=== PATIENT | female | born 1950 | race Caucasian/White ===

== ENCOUNTER 2018-03-19 18:19 | Inpatient (IN) | payer MEDICARE, OTHER ==
[2018-03-19] MEDS: NITROGLYCERIN 2% 1 GM OINT PKT TD (19:04)
[2018-03-19] MEDS: FUROSEMIDE 40 MG INJ IV (19:04)
[2018-03-19 19:15] LABS: ADD MAN DIFF? NO
[2018-03-19 19:16] LABS: ABNORMAL IP MESSAGE 1; BASOPHILS % 0.4 % (0.0-2.0); EOSINOPHILS # 0.1 10^3/ul (0.0-0.5); EOSINOPHILS % 1.3 % (0.0-7.0); HEMATOCRIT 36.8 % (37.0-47.0); HEMOGLOBIN 11.4 g/dl (12.0-16.0); LYMPHOCYTES # 1.3 10^3/ul (0.8-2.9); LYMPHOCYTES % 14.8 % (15.0-51.0); MEAN CORPUSCULAR HEMOGLOBIN 20.4 pg (29.0-33.0); MEAN CORPUSCULAR VOLUME 65.8 fl (82.0-101.0); MONOCYTE # 0.5 10^3/ul (0.3-0.9); MONOCYTES % 5.7 % (0.0-11.0); NEUTROPHILS % 77.5 % (39.0-77.0); PLATELET COUNT 245 10^3/UL (140-415); RED BLOOD COUNT 5.59 10^6/ul (4.20-5.40); RED CELL DISTRIBUTION WIDTH 17.2 % (11.5-14.5)
[2018-03-19] MEDS: DILTIAZEM 25 MG INJ IV (19:27)
[2018-03-19] MEDS: DILTIAZEM-D5W 125MG/125ML DRIP 125 ML IV (19:28)
[2018-03-19 19:37] LABS: ALANINE AMINOTRANSFERASE 27 IU/L (13-69); ALBUMIN 3.5 g/dl (3.3-4.9); ALBUMIN/GLOBULIN RATIO 1.02; ALKALINE PHOSPHATASE 243 IU/L (42-121); ANION GAP 16 (8-16); ASPARTATE AMINO TRANSFERASE 28 IU/L (15-46); BILIRUBIN,INDIRECT 0.4 mg/dl (0-1.1); BILIRUBIN,TOTAL 0.4 mg/dl (0.2-1.3); BLOOD UREA NITROGEN 12 mg/dl (7-20); CALCIUM 8.7 mg/dl (8.4-10.2); CARBON DIOXIDE 27 mmol/L (21-31); CHLORIDE 95 mmol/L (97-110); CREATININE 0.63 mg/dl (0.44-1.00); GLUCOSE 339 mg/dl (70-220); POTASSIUM 4.3 mmol/L (3.5-5.1); SODIUM 134 mmol/L (135-144); TOTAL PROTEIN 6.9 g/dl (6.1-8.1)
[2018-03-19 19:43] LABS: INR 1.09; PROTIME 14.3 Sec (11.9-14.9); PT RATIO 1.1
[2018-03-19 19:44] LABS: PARTIAL THROMBOPLASTIN TIME 31.5 Sec (25.0-35.0)
[2018-03-19 19:48] LABS: B-TYPE NATRIURETIC PEPTIDE 1660 PG/ML (0-125); POSITIVE DIFF @See below
[2018-03-19 19:49] LABS: TROPONIN-I < 0.012 ng/ml (0.00-0.12)
[2018-03-19] MEDS ORDERED: ACETAMINOPHEN 325 MG TAB PO (20:30)
[2018-03-19] MEDS ORDERED: ONDANSETRON 4 MG INJ IV ×2 (20:30→21:00)
[2018-03-19] MEDS ORDERED: NITROGLYCERIN (SL) 0.4 MG TAB SL (21:00)
[2018-03-19] MEDS ORDERED: NACL 0.9% 3 ML SYG IV (21:00)
[2018-03-19 21:11] LABS: MAGNESIUM 1.6 mg/dl (1.7-2.5)
[2018-03-19 21:15] LABS: HEMOGLOBIN A1C 11.2 % (0-5.9)
[2018-03-19 22:50] LABS: FREE T4 (FREE THYROXINE) 1.29 ng/dl (0.78-2.44)
[2018-03-19] MEDS ORDERED: DEXTROSE 50% 50 ML SYRINGE IV ×2 (23:00)
[2018-03-19] MEDS ORDERED: GLUCAGON 1 MG INJ IM (23:00)
[2018-03-19] MEDS ORDERED: GLUCOSE GEL 15 GRAM TUBE BUCCAL (23:00)
[2018-03-19] MEDS ORDERED: GLUCOSE GEL 15 GRAM TUBE PO ×2 (23:00)
[2018-03-19] MEDS: PANTOPRAZOLE (EC) 40 MG TAB PO (23:55)
[2018-03-19] MEDS: DOCUSATE SODIUM 100 MG CAP PO (23:58)
[2018-03-19] MEDS: SUCRALFATE 1 GM TAB PO (23:58)
[2018-03-19] MEDS: LISINOPRIL 20 MG TAB PO (23:59)
[2018-03-20] MEDS: MAGNESIUM SULFATE 2 GM/50 ML 50 ML IVPB
[2018-03-20] MEDS: DIGOXIN 0.125 MG TAB PO ×2 (00:12→13:17)
[2018-03-20 01:09] LABS: CREATINE KINASE 81 IU/L (23-200)
[2018-03-20 01:22] LABS: CK INDEX 1.9; CK-MB 1.55 ng/ml (0.0-2.4)
[2018-03-20 01:23] LABS: TROPONIN-I < 0.012 ng/ml (0.00-0.12)
[2018-03-20] MEDS: ACCU-CHEK XX (02:00)
[2018-03-20] MEDS: INSULIN GLARGINE [LANtus] 3 ML PEN SC ×2 (02:45→20:25)
[2018-03-20] MEDS: INSULIN ASPART [NOVOLOG] 3 ML PEN SC ×5 (02:48→20:26)
[2018-03-20] MEDS: PANTOPRAZOLE (EC) 40 MG TAB PO ×2 (07:00→07:13)
[2018-03-20] MEDS: SUCRALFATE 1 GM TAB PO ×4 (07:13→20:33)
[2018-03-20] MEDS ORDERED: SUCRALFATE 1 GM TAB PO (07:25)
[2018-03-20 08:59] LABS: ADD MAN DIFF? NO
[2018-03-20 09:05] LABS: WHITE BLOOD COUNT 8.2 10^3/ul (4.8-10.8)
[2018-03-20 09:05] LABS: ABNORMAL IP MESSAGE 1; BASOPHIL # 0.1 10^3/ul (0.0-0.1); BASOPHILS % 0.6 % (0.0-2.0); EOSINOPHILS # 0.2 10^3/ul (0.0-0.5); EOSINOPHILS % 2.2 % (0.0-7.0); HEMATOCRIT 35.7 % (37.0-47.0); HEMOGLOBIN 10.8 g/dl (12.0-16.0); LYMPHOCYTES # 1.5 10^3/ul (0.8-2.9); MEAN CORPUSCULAR HEMOGLOBIN 20.1 pg (29.0-33.0); MEAN CORPUSCULAR HGB CONC 30.3 g/dl (32.0-37.0); MEAN CORPUSCULAR VOLUME 66.4 fl (82.0-101.0); MONOCYTE # 0.5 10^3/ul (0.3-0.9); MONOCYTES % 6.6 % (0.0-11.0); NEUTROPHILS % 72.4 % (39.0-77.0); PLATELET COUNT 252 10^3/UL (140-415); RED BLOOD COUNT 5.38 10^6/ul (4.20-5.40)
[2018-03-20 09:07] LABS: POSITIVE DIFF @See below
[2018-03-20 09:26] LABS: IRON 40 ug/dl (35-150)
[2018-03-20 09:30] LABS: ALANINE AMINOTRANSFERASE 20 IU/L (13-69); ALBUMIN 3.3 g/dl (3.3-4.9); ALKALINE PHOSPHATASE 160 IU/L (42-121); ANION GAP 15 (8-16); ASPARTATE AMINO TRANSFERASE 23 IU/L (15-46); BILIRUBIN,INDIRECT 0.6 mg/dl (0-1.1); BILIRUBIN,TOTAL 0.6 mg/dl (0.2-1.3); BLOOD UREA NITROGEN 13 mg/dl (7-20); CALCIUM 8.7 mg/dl (8.4-10.2); CARBON DIOXIDE 30 mmol/L (21-31); CHLORIDE 97 mmol/L (97-110); CREATININE 0.64 mg/dl (0.44-1.00); GLUCOSE 178 mg/dl (70-220); POTASSIUM 3.6 mmol/L (3.5-5.1); SODIUM 138 mmol/L (135-144); TOTAL PROTEIN 6.6 g/dl (6.1-8.1)
[2018-03-20] MEDS: LISINOPRIL 20 MG TAB PO (09:31)
[2018-03-20] MEDS: MULTIVITAMINS THERAPEUTIC TAB PO (09:31)
[2018-03-20] MEDS: CILOSTAZOL 100 MG TAB PO (09:31)
[2018-03-20 09:32] LABS: CREATINE KINASE 79 IU/L (23-200)
[2018-03-20 09:35] LABS: % IRON SATURATION 10 % SAT (22-52); TOTAL IRON BINDING CAPACITY 388 ug/dl (241-421)
[2018-03-20 09:38] LABS: CK-MB 1.55 ng/ml (0.0-2.4)
[2018-03-20 09:54] LABS: TROPONIN-I < 0.012 ng/ml (0.00-0.12)
[2018-03-20 09:55] LABS: FERRITIN 14.1 ng/ml (11.1-264.0)
[2018-03-20] MEDS: BISACODYL (EC) 5 MG TAB PO (12:43)
[2018-03-20] MEDS: ACETAMINOPHEN 325 MG TAB PO ×2 (15:34→23:37)
[2018-03-20 19:58] LABS: OCCULT BLOOD STOOL NEGATIVE (NEGATIVE)
[2018-03-20] MEDS: [UNRECOGNIZED DRUG - REMARK] XX (20:30)
[2018-03-20] MEDS: FUROSEMIDE 20 MG INJ IV (20:33)
[2018-03-20] MEDS: GABAPENTIN 300 MG CAP PO (20:34)
[2018-03-20] MEDS: ATORVASTATIN 10 MG TAB PO (20:34)
[2018-03-20] MEDS: ENOXAPARIN 60 MG/0.6 ML SYG SC (20:34)
[2018-03-21] MEDS: ACCU-CHEK XX (02:00)
[2018-03-21] MEDS: [UNRECOGNIZED DRUG - REMARK] XX (04:30)
[2018-03-21] MEDS: PANTOPRAZOLE (EC) 40 MG TAB PO (05:25)
[2018-03-21] MEDS: INSULIN ASPART [NOVOLOG] 3 ML PEN SC ×5 (07:55→20:41)
[2018-03-21] MEDS: SUCRALFATE 1 GM TAB PO ×4 (07:55→20:40)
[2018-03-21 08:03] LABS: ADD MAN DIFF? NO
[2018-03-21 08:05] LABS: ABNORMAL IP MESSAGE 1; BASOPHILS % 0.4 % (0.0-2.0); EOSINOPHILS # 0.2 10^3/ul (0.0-0.5); EOSINOPHILS % 2.4 % (0.0-7.0); HEMATOCRIT 31.8 % (37.0-47.0); HEMOGLOBIN 9.7 g/dl (12.0-16.0); LYMPHOCYTES # 1.1 10^3/ul (0.8-2.9); LYMPHOCYTES % 13.2 % (15.0-51.0); MEAN CORPUSCULAR HGB CONC 30.5 g/dl (32.0-37.0); MEAN CORPUSCULAR VOLUME 65.7 fl (82.0-101.0); MONOCYTE # 0.5 10^3/ul (0.3-0.9); MONOCYTES % 5.9 % (0.0-11.0); NEUTROPHIL # 6.2 10^3/ul (1.6-7.5); NEUTROPHILS % 77.7 % (39.0-77.0); PLATELET COUNT 225 10^3/UL (140-415); RED BLOOD COUNT 4.84 10^6/ul (4.20-5.40); RED CELL DISTRIBUTION WIDTH 17.3 % (11.5-14.5)
[2018-03-21 08:12] LABS: POSITIVE DIFF @See below
[2018-03-21 08:25] LABS: ANION GAP 10 (8-16); BLOOD UREA NITROGEN 20 mg/dl (7-20); CALCIUM 8.3 mg/dl (8.4-10.2); CARBON DIOXIDE 30 mmol/L (21-31); CHLORIDE 99 mmol/L (97-110); CREATININE 0.63 mg/dl (0.44-1.00); GLUCOSE 145 mg/dl (70-220); SODIUM 135 mmol/L (135-144)
[2018-03-21] MEDS: LISINOPRIL 20 MG TAB PO (08:54)
[2018-03-21] MEDS: FERROUS SULFATE (EC) 325 MG TAB PO (08:55)
[2018-03-21] MEDS: MULTIVITAMINS THERAPEUTIC TAB PO (08:55)
[2018-03-21] MEDS: FUROSEMIDE 20 MG INJ IV (08:55)
[2018-03-21] MEDS ORDERED: ENOXAPARIN 30 MG/0.3 ML SYG SC (11:00)
[2018-03-21] MEDS: APIXABAN 5 MG TABLET PO ×2 (11:40→20:40)
[2018-03-21] MEDS: DIGOXIN 0.125 MG TAB PO (14:26)
[2018-03-21] MEDS: GABAPENTIN 300 MG CAP PO (20:40)
[2018-03-21] MEDS: ATORVASTATIN 10 MG TAB PO (20:40)
[2018-03-21] MEDS: INSULIN GLARGINE [LANtus] 3 ML PEN SC (20:42)
[2018-03-22] MEDS: ACCU-CHEK XX (01:49)
[2018-03-22] MEDS: PANTOPRAZOLE (EC) 40 MG TAB PO (05:10)
[2018-03-22] MEDS: ACETAMINOPHEN 325 MG TAB PO (05:10)
[2018-03-22] MEDS: SUCRALFATE 1 GM TAB PO ×4 (05:10→20:50)
[2018-03-22] MEDS: APIXABAN 5 MG TABLET PO ×2 (08:21→20:49)
[2018-03-22] MEDS: FERROUS SULFATE (EC) 325 MG TAB PO (08:22)
[2018-03-22] MEDS: LISINOPRIL 20 MG TAB PO (08:22)
[2018-03-22] MEDS: MULTIVITAMINS THERAPEUTIC TAB PO (08:22)
[2018-03-22] MEDS: FUROSEMIDE 20 MG INJ IV ×2 (08:23→17:10)
[2018-03-22] MEDS: INSULIN ASPART [NOVOLOG] 3 ML PEN SC ×7 (08:31→20:44)
[2018-03-22 09:21] LABS: ADD MAN DIFF? NO
[2018-03-22 09:35] LABS: WHITE BLOOD COUNT 6.3 10^3/ul (4.8-10.8)
[2018-03-22 09:35] LABS: ABNORMAL IP MESSAGE 1; BASOPHILS % 0.3 % (0.0-2.0); EOSINOPHILS # 0.2 10^3/ul (0.0-0.5); EOSINOPHILS % 2.4 % (0.0-7.0); HEMATOCRIT 32.3 % (37.0-47.0); HEMOGLOBIN 9.9 g/dl (12.0-16.0); LYMPHOCYTES # 1.3 10^3/ul (0.8-2.9); LYMPHOCYTES % 19.7 % (15.0-51.0); MEAN CORPUSCULAR HEMOGLOBIN 20.4 pg (29.0-33.0); MEAN CORPUSCULAR HGB CONC 30.7 g/dl (32.0-37.0); MEAN CORPUSCULAR VOLUME 66.5 fl (82.0-101.0); MONOCYTE # 0.6 10^3/ul (0.3-0.9); MONOCYTES % 8.7 % (0.0-11.0); NEUTROPHIL # 4.4 10^3/ul (1.6-7.5); NEUTROPHILS % 68.6 % (39.0-77.0); PLATELET COUNT 225 10^3/UL (140-415); RED BLOOD COUNT 4.86 10^6/ul (4.20-5.40); RED CELL DISTRIBUTION WIDTH 16.8 % (11.5-14.5)
[2018-03-22 09:54] LABS: ANION GAP 13 (8-16); BLOOD UREA NITROGEN 22 mg/dl (7-20); CALCIUM 8.7 mg/dl (8.4-10.2); CARBON DIOXIDE 33 mmol/L (21-31); CHLORIDE 97 mmol/L (97-110); CREATININE 0.67 mg/dl (0.44-1.00); GLUCOSE 153 mg/dl (70-220); POTASSIUM 3.7 mmol/L (3.5-5.1); SODIUM 139 mmol/L (135-144)
[2018-03-22] MEDS: DIGOXIN 0.125 MG TAB PO (13:02)
[2018-03-22] MEDS: INSULIN GLARGINE [LANtus] 3 ML PEN SC (20:44)
[2018-03-22] MEDS: GABAPENTIN 300 MG CAP PO (20:50)
[2018-03-22] MEDS: ATORVASTATIN 10 MG TAB PO (20:50)
[2018-03-23] MEDS: ACCU-CHEK XX (02:42)
[2018-03-23] MEDS: INSULIN ASPART [NOVOLOG] 3 ML PEN SC ×8 (02:48→20:38)
[2018-03-23] MEDS: FUROSEMIDE 20 MG INJ IV ×2 (05:15→17:29)
[2018-03-23] MEDS: PANTOPRAZOLE (EC) 40 MG TAB PO (05:15)
[2018-03-23 08:21] LABS: ADD MAN DIFF? NO
[2018-03-23 08:30] LABS: ABNORMAL IP MESSAGE 1; BASOPHILS % 0.4 % (0.0-2.0); EOSINOPHILS # 0.2 10^3/ul (0.0-0.5); EOSINOPHILS % 2.2 % (0.0-7.0); HEMATOCRIT 33.1 % (37.0-47.0); HEMOGLOBIN 10.2 g/dl (12.0-16.0); LYMPHOCYTES # 1.3 10^3/ul (0.8-2.9); MEAN CORPUSCULAR HEMOGLOBIN 20.3 pg (29.0-33.0); MEAN CORPUSCULAR HGB CONC 30.8 g/dl (32.0-37.0); MEAN CORPUSCULAR VOLUME 65.8 fl (82.0-101.0); MONOCYTE # 0.6 10^3/ul (0.3-0.9); MONOCYTES % 8.4 % (0.0-11.0); NEUTROPHIL # 5.3 10^3/ul (1.6-7.5); NEUTROPHILS % 71.7 % (39.0-77.0); PLATELET COUNT 226 10^3/UL (140-415); RED BLOOD COUNT 5.03 10^6/ul (4.20-5.40); RED CELL DISTRIBUTION WIDTH 17.2 % (11.5-14.5)
[2018-03-23 08:30] LABS: WHITE BLOOD COUNT 7.4 10^3/ul (4.8-10.8)
[2018-03-23 08:35] LABS: POSITIVE DIFF @See below
[2018-03-23] MEDS: LISINOPRIL 20 MG TAB PO (08:50)
[2018-03-23] MEDS: FERROUS SULFATE (EC) 325 MG TAB PO (08:51)
[2018-03-23] MEDS: SUCRALFATE 1 GM TAB PO ×4 (08:51→20:34)
[2018-03-23] MEDS: APIXABAN 5 MG TABLET PO ×2 (08:51→20:35)
[2018-03-23] MEDS: MULTIVITAMINS THERAPEUTIC TAB PO (08:51)
[2018-03-23 08:54] LABS: ANION GAP 13 (8-16); BLOOD UREA NITROGEN 22 mg/dl (7-20); CARBON DIOXIDE 38 mmol/L (21-31); CHLORIDE 95 mmol/L (97-110); CREATININE 0.64 mg/dl (0.44-1.00); GLUCOSE 175 mg/dl (70-220); POTASSIUM 3.5 mmol/L (3.5-5.1); SODIUM 142 mmol/L (135-144)
[2018-03-23 12:33] LABS: HAAIG REFLEX REFLEX FILED
[2018-03-23 12:52] LABS: ALANINE AMINOTRANSFERASE 18 IU/L (13-69); ALBUMIN 3.3 g/dl (3.3-4.9); ALKALINE PHOSPHATASE 158 IU/L (42-121); ASPARTATE AMINO TRANSFERASE 22 IU/L (15-46); BILIRUBIN,INDIRECT 0.6 mg/dl (0-1.1); BILIRUBIN,TOTAL 0.6 mg/dl (0.2-1.3); TOTAL PROTEIN 6.7 g/dl (6.1-8.1)
[2018-03-23] MEDS: DIGOXIN 0.125 MG TAB PO (12:59)
[2018-03-23 13:23] LABS: HEPATITIS B SURFACE ANTIGEN NEGATIVE (NEGATIVE)
[2018-03-23 13:42] LABS: HEPATITIS B CORE ANTIBODY NEGATIVE (NEGATIVE); HEPATITIS C VIRAL ANTIBODY NEGATIVE (NEGATIVE)
[2018-03-23] MEDS: ATORVASTATIN 10 MG TAB PO (20:34)
[2018-03-23] MEDS: GABAPENTIN 300 MG CAP PO (20:35)
[2018-03-23] MEDS: INSULIN GLARGINE [LANtus] 3 ML PEN SC (20:37)
[2018-03-24] MEDS: ACCU-CHEK XX (02:00)
[2018-03-24] MEDS: FUROSEMIDE 20 MG INJ IV (05:25)
[2018-03-24] MEDS: PANTOPRAZOLE (EC) 40 MG TAB PO (05:25)
[2018-03-24] MEDS: LISINOPRIL 20 MG TAB PO (08:28)
[2018-03-24] MEDS: MULTIVITAMINS THERAPEUTIC TAB PO (08:29)
[2018-03-24] MEDS: APIXABAN 5 MG TABLET PO ×2 (08:29→20:41)
[2018-03-24] MEDS: FERROUS SULFATE (EC) 325 MG TAB PO (08:29)
[2018-03-24] MEDS: SUCRALFATE 1 GM TAB PO ×4 (08:29→20:41)
[2018-03-24] MEDS: INSULIN ASPART [NOVOLOG] 3 ML PEN SC ×7 (08:32→20:51)
[2018-03-24] MEDS: ACETAMINOPHEN 325 MG TAB PO ×2 (08:40→17:50)
[2018-03-24 08:57] LABS: ADD MAN DIFF? NO
[2018-03-24 09:04] LABS: WHITE BLOOD COUNT 7.2 10^3/ul (4.8-10.8)
[2018-03-24 09:04] LABS: ABNORMAL IP MESSAGE 1; BASOPHILS % 0.4 % (0.0-2.0); EOSINOPHILS # 0.2 10^3/ul (0.0-0.5); EOSINOPHILS % 2.9 % (0.0-7.0); HEMATOCRIT 32.9 % (37.0-47.0); LYMPHOCYTES # 1.5 10^3/ul (0.8-2.9); LYMPHOCYTES % 21.4 % (15.0-51.0); MEAN CORPUSCULAR HEMOGLOBIN 20.2 pg (29.0-33.0); MEAN CORPUSCULAR HGB CONC 30.4 g/dl (32.0-37.0); MEAN CORPUSCULAR VOLUME 66.3 fl (82.0-101.0); MEAN PLATELET VOLUME 11.5 fl (7.4-10.4); MONOCYTE # 0.6 10^3/ul (0.3-0.9); NEUTROPHIL # 4.7 10^3/ul (1.6-7.5); NEUTROPHILS % 66.2 % (39.0-77.0); PLATELET COUNT 225 10^3/UL (140-415); RED BLOOD COUNT 4.96 10^6/ul (4.20-5.40); RED CELL DISTRIBUTION WIDTH 16.8 % (11.5-14.5)
[2018-03-24 09:29] LABS: ANION GAP 14 (8-16); BLOOD UREA NITROGEN 26 mg/dl (7-20); CALCIUM 8.8 mg/dl (8.4-10.2); CARBON DIOXIDE 34 mmol/L (21-31); CHLORIDE 97 mmol/L (97-110); GLUCOSE 156 mg/dl (70-220); POTASSIUM 3.7 mmol/L (3.5-5.1); SODIUM 141 mmol/L (135-144)
[2018-03-24] MEDS: DIGOXIN 0.125 MG TAB PO (12:45)
[2018-03-24] MEDS: FUROSEMIDE 40 MG INJ IV (17:38)
[2018-03-24] MEDS: ATORVASTATIN 10 MG TAB PO (20:42)
[2018-03-24] MEDS: GABAPENTIN 300 MG CAP PO (20:43)
[2018-03-24] MEDS: INSULIN GLARGINE [LANtus] 3 ML PEN SC (20:50)
[2018-03-25] MEDS: ACCU-CHEK XX (02:00)
[2018-03-25] MEDS: FUROSEMIDE 40 MG INJ IV ×2 (06:09→17:26)
[2018-03-25] MEDS: PANTOPRAZOLE (EC) 40 MG TAB PO (06:09)
[2018-03-25] MEDS: SUCRALFATE 1 GM TAB PO ×4 (08:12→20:55)
[2018-03-25] MEDS: APIXABAN 5 MG TABLET PO ×2 (08:12→20:55)
[2018-03-25] MEDS: FERROUS SULFATE (EC) 325 MG TAB PO (08:12)
[2018-03-25] MEDS: MULTIVITAMINS THERAPEUTIC TAB PO (08:12)
[2018-03-25] MEDS: LISINOPRIL 20 MG TAB PO (08:13)
[2018-03-25] MEDS: INSULIN ASPART [NOVOLOG] 3 ML PEN SC ×7 (08:33→21:02)
[2018-03-25 08:52] LABS: ADD MAN DIFF? NO
[2018-03-25 08:56] LABS: ABNORMAL IP MESSAGE 1; BASOPHILS % 0.5 % (0.0-2.0); EOSINOPHILS # 0.3 10^3/ul (0.0-0.5); EOSINOPHILS % 4.5 % (0.0-7.0); HEMATOCRIT 35.3 % (37.0-47.0); HEMOGLOBIN 10.6 g/dl (12.0-16.0); LYMPHOCYTES # 1.3 10^3/ul (0.8-2.9); MEAN CORPUSCULAR HEMOGLOBIN 20.2 pg (29.0-33.0); MEAN CORPUSCULAR VOLUME 67.2 fl (82.0-101.0); MEAN PLATELET VOLUME 11.2 fl (7.4-10.4); MONOCYTE # 0.5 10^3/ul (0.3-0.9); MONOCYTES % 8.9 % (0.0-11.0); NEUTROPHIL # 3.9 10^3/ul (1.6-7.5); NEUTROPHILS % 64.9 % (39.0-77.0); PLATELET COUNT 222 10^3/UL (140-415); RED BLOOD COUNT 5.25 10^6/ul (4.20-5.40)
[2018-03-25 08:58] LABS: POSITIVE DIFF @See below
[2018-03-25 09:24] LABS: INR 1.13; PARTIAL THROMBOPLASTIN TIME 37.2 Sec (25.0-35.0); PROTIME 14.7 Sec (11.9-14.9); PT RATIO 1.1
[2018-03-25 09:27] LABS: BLOOD UREA NITROGEN 25 mg/dl (7-20); CALCIUM 9.2 mg/dl (8.4-10.2); CHLORIDE 95 mmol/L (97-110); CREATININE 0.67 mg/dl (0.44-1.00); GLUCOSE 275 mg/dl (70-220); SODIUM 142 mmol/L (135-144)
[2018-03-25 09:33] LABS: ANION GAP 12 (8-16)
[2018-03-25 09:37] LABS: CARBON DIOXIDE 39 mmol/L (21-31)
[2018-03-25] MEDS: ACETAMINOPHEN 325 MG TAB PO ×2 (10:58→17:37)
[2018-03-25] MEDS: DIGOXIN 0.125 MG TAB PO (12:48)
[2018-03-25] MEDS: ATORVASTATIN 10 MG TAB PO (20:55)
[2018-03-25] MEDS: GABAPENTIN 300 MG CAP PO (20:55)
[2018-03-25] MEDS: INSULIN GLARGINE [LANtus] 3 ML PEN SC (21:02)
[2018-03-26] MEDS: ACETAMINOPHEN 325 MG TAB PO ×2 (01:41→23:42)
[2018-03-26] MEDS: ACCU-CHEK XX (02:00)
[2018-03-26] MEDS: PANTOPRAZOLE (EC) 40 MG TAB PO (05:51)
[2018-03-26] MEDS: FUROSEMIDE 40 MG INJ IV ×2 (05:51→17:07)
[2018-03-26] MEDS: SUCRALFATE 1 GM TAB PO ×4 (07:38→20:14)
[2018-03-26] MEDS: INSULIN ASPART [NOVOLOG] 3 ML PEN SC ×7 (08:22→21:04)
[2018-03-26] MEDS: FERROUS SULFATE (EC) 325 MG TAB PO (08:23)
[2018-03-26] MEDS: MULTIVITAMINS THERAPEUTIC TAB PO (08:23)
[2018-03-26] MEDS: APIXABAN 5 MG TABLET PO ×2 (08:23→20:16)
[2018-03-26] MEDS: LISINOPRIL 20 MG TAB PO (08:24)
[2018-03-26] MEDS: DIGOXIN 0.125 MG TAB PO (12:16)
[2018-03-26] MEDS: ATORVASTATIN 10 MG TAB PO (20:16)
[2018-03-26] MEDS: GABAPENTIN 300 MG CAP PO (20:16)
[2018-03-26] MEDS: INSULIN GLARGINE [LANtus] 3 ML PEN SC (21:03)
[2018-03-27] MEDS: ACCU-CHEK XX (02:00)
[2018-03-27] MEDS: PANTOPRAZOLE (EC) 40 MG TAB PO (05:40)
[2018-03-27] MEDS: FUROSEMIDE 40 MG INJ IV (05:41)
[2018-03-27] MEDS: INSULIN ASPART [NOVOLOG] 3 ML PEN SC ×4 (07:55→13:35)
[2018-03-27] MEDS: MULTIVITAMINS THERAPEUTIC TAB PO (08:45)
[2018-03-27] MEDS: FERROUS SULFATE (EC) 325 MG TAB PO (08:45)
[2018-03-27] MEDS: SUCRALFATE 1 GM TAB PO ×2 (08:45→11:20)
[2018-03-27] MEDS: APIXABAN 5 MG TABLET PO (08:45)
[2018-03-27] MEDS: LISINOPRIL 20 MG TAB PO (08:46)
[2018-03-27] MEDS: DIGOXIN 0.125 MG TAB PO (15:13)
[2018-03-27] MEDS: ACETAMINOPHEN 325 MG TAB PO (16:23)
[2018-03-27] MEDS ORDERED: FUROSEMIDE 40 MG TAB PO (18:00)
== END 2018-03-27 18:30 | disposition home or self-care (01) | DRG 293 ==
LOC: TEL 03-24 10:55 → E/R 18:19 → TEL 20:09
DX: I11.0 Hypertensive heart disease with heart failure (principal); I50.23 Acute on chronic systolic (congestive) heart failure; I27.20 Pulmonary hypertension, unspecified; I48.91 Unspecified atrial fibrillation; E11.65 Type 2 diabetes mellitus with hyperglycemia; Z87.11 Personal history of peptic ulcer disease; D64.9 Anemia, unspecified; E78.5 Hyperlipidemia, unspecified; K21.9 Gastro-esophageal reflux disease without esophagitis; E02 Subclinical iodine-deficiency hypothyroidism; E11.51 Type 2 diabetes mellitus with diabetic peripheral angiopathy without gangrene; E78.00 Pure hypercholesterolemia, unspecified
CPT/HCPCS: 36415; 71045; 76705; 80048; 80053; 80076; 82270; 82550; 82553; 82728; 82962; 83036; 83540; 83735; 83880; 84439; 84443; 84481; 84484; 85025; 85610; 85730; 86704; 86709; 86803; 87340; 93005; 93306; 93970; 96365; 96375; 99285-25

== ENCOUNTER 2018-04-03 21:44 | Inpatient (IN) | payer MEDICARE ==
[2018-04-04] MEDS: ONDANSETRON 4 MG INJ IV ×2 (00:56→20:16)
[2018-04-04] MEDS: DILTIAZEM 50 MG INJ IV ×2 (00:56→07:56)
[2018-04-04] MEDS: morphine 2 MG INJ IV ×2 (00:56→20:16)
[2018-04-04 01:02] LABS: ADD MAN DIFF? NO
[2018-04-04] MEDS: SOD CHLORIDE 0.9% 500 ML IV (01:04)
[2018-04-04 01:11] LABS: ABNORMAL IP MESSAGE 1; BASOPHILS % 0.4 % (0.0-2.0); EOSINOPHILS % 0.4 % (0.0-7.0); HEMATOCRIT 36.4 % (37.0-47.0); HEMOGLOBIN 11.2 g/dl (12.0-16.0); LYMPHOCYTES # 1.2 10^3/ul (0.8-2.9); LYMPHOCYTES % 10.9 % (15.0-51.0); MEAN CORPUSCULAR HEMOGLOBIN 20.1 pg (29.0-33.0); MEAN CORPUSCULAR HGB CONC 30.8 g/dl (32.0-37.0); MEAN CORPUSCULAR VOLUME 65.4 fl (82.0-101.0); MONOCYTE # 0.6 10^3/ul (0.3-0.9); NEUTROPHIL # 9.4 10^3/ul (1.6-7.5); NEUTROPHILS % 82.8 % (39.0-77.0); NUCLEATED RED BLOOD CELLS% 0.4 /100WBC (0.0-0.0); PLATELET COUNT 304 10^3/UL (140-415); RED BLOOD COUNT 5.57 10^6/ul (4.20-5.40); RED CELL DISTRIBUTION WIDTH 18.1 % (11.5-14.5)
[2018-04-04 01:11] LABS: WHITE BLOOD COUNT 11.4 10^3/ul (4.8-10.8)
[2018-04-04 01:12] LABS: POSITIVE DIFF @See below
[2018-04-04 01:29] LABS: ALANINE AMINOTRANSFERASE 23 IU/L (13-69); ALBUMIN 3.9 g/dl (3.3-4.9); ALBUMIN/GLOBULIN RATIO 1.02; ALKALINE PHOSPHATASE 247 IU/L (42-121); ANION GAP 14 (8-16); ASPARTATE AMINO TRANSFERASE 34 IU/L (15-46); BILIRUBIN,INDIRECT 1.1 mg/dl (0-1.1); BILIRUBIN,TOTAL 1.1 mg/dl (0.2-1.3); BLOOD UREA NITROGEN 14 mg/dl (7-20); CARBON DIOXIDE 27 mmol/L (21-31); CHLORIDE 97 mmol/L (97-110); CREATININE 0.61 mg/dl (0.44-1.00); GLUCOSE 334 mg/dl (70-220); SODIUM 133 mmol/L (135-144); TOTAL PROTEIN 7.7 g/dl (6.1-8.1)
[2018-04-04 01:40] LABS: B-TYPE NATRIURETIC PEPTIDE 2450 PG/ML (0-125)
[2018-04-04 01:42] LABS: TROPONIN-I < 0.012 ng/ml (0.00-0.12)
[2018-04-04] MEDS ORDERED: LEVALBUTEROL (NEB) 0.63 MG/3 ML AMP HHN (06:00)
[2018-04-04] MEDS ORDERED: NACL 0.9% 3 ML SYG IV (06:00)
[2018-04-04] MEDS ORDERED: NITROGLYCERIN (SL) 0.4 MG TAB SL (06:00)
[2018-04-04] MEDS ORDERED: DEXTROSE 50% 50 ML SYRINGE IV ×2 (07:30)
[2018-04-04] MEDS ORDERED: GLUCOSE GEL 15 GRAM TUBE PO ×2 (07:30)
[2018-04-04] MEDS ORDERED: GLUCAGON 1 MG INJ IM (07:30)
[2018-04-04] MEDS ORDERED: GLUCOSE GEL 15 GRAM TUBE BUCCAL (07:30)
[2018-04-04] MEDS: PANTOPRAZOLE (EC) 40 MG TAB PO (07:56)
[2018-04-04] MEDS: ACETAMINOPHEN 325 MG TAB PO ×2 (07:56→15:13)
[2018-04-04] MEDS: FUROSEMIDE 40 MG TAB PO ×2 (07:57→17:33)
[2018-04-04 08:02] LABS: ADD MAN DIFF? NO
[2018-04-04 08:04] LABS: WHITE BLOOD COUNT 11.3 10^3/ul (4.8-10.8)
[2018-04-04 08:04] LABS: ABNORMAL IP MESSAGE 1; BASOPHILS % 0.4 % (0.0-2.0); EOSINOPHILS # 0.1 10^3/ul (0.0-0.5); EOSINOPHILS % 0.5 % (0.0-7.0); HEMATOCRIT 34.2 % (37.0-47.0); HEMOGLOBIN 10.3 g/dl (12.0-16.0); LYMPHOCYTES # 1.4 10^3/ul (0.8-2.9); LYMPHOCYTES % 12.2 % (15.0-51.0); MEAN CORPUSCULAR HGB CONC 30.1 g/dl (32.0-37.0); MEAN CORPUSCULAR VOLUME 66.4 fl (82.0-101.0); MEAN PLATELET VOLUME 10.9 fl (7.4-10.4); MONOCYTE # 0.9 10^3/ul (0.3-0.9); MONOCYTES % 7.8 % (0.0-11.0); NEUTROPHIL # 8.9 10^3/ul (1.6-7.5); NEUTROPHILS % 78.6 % (39.0-77.0); NUCLEATED RED BLOOD CELLS% 0.2 /100WBC (0.0-0.0); PLATELET COUNT 268 10^3/UL (140-415); RED BLOOD COUNT 5.15 10^6/ul (4.20-5.40)
[2018-04-04 08:05] LABS: POSITIVE DIFF @See below
[2018-04-04 08:21] LABS: CREATINE KINASE 73 IU/L (23-200)
[2018-04-04 08:23] LABS: ANION GAP 10 (8-16); BLOOD UREA NITROGEN 13 mg/dl (7-20); CALCIUM 8.9 mg/dl (8.4-10.2); CARBON DIOXIDE 29 mmol/L (21-31); CHLORIDE 99 mmol/L (97-110); CREATININE 0.59 mg/dl (0.44-1.00); GLUCOSE 249 mg/dl (70-220); POTASSIUM 4.3 mmol/L (3.5-5.1); SODIUM 134 mmol/L (135-144)
[2018-04-04 08:34] LABS: CK INDEX 1.8; TROPONIN-I 0.013 ng/ml (0.00-0.12)
[2018-04-04] MEDS: metFORMIN 500 MG TAB PO (08:47)
[2018-04-04] MEDS: MULTIVITAMINS THERAPEUTIC TAB PO (08:48)
[2018-04-04] MEDS: APIXABAN 5 MG TABLET PO ×2 (08:48→20:55)
[2018-04-04] MEDS: LISINOPRIL 20 MG TAB PO (08:48)
[2018-04-04] MEDS: DOCUSATE SODIUM 250 MG CAP PO ×2 (08:49→20:55)
[2018-04-04] MEDS: CALCIUM CARBONATE 1.25 GM TAB PO ×2 (08:49→20:55)
[2018-04-04] MEDS: FERROUS SULFATE (EC) 325 MG TAB PO ×2 (08:50→20:55)
[2018-04-04] MEDS ORDERED: NON-FORMULARY/PATIENT OWN MED (Ferrous Sulfate 325 MG) PO (09:00)
[2018-04-04] MEDS ORDERED: FERROUS SULFATE (EC) 325 MG TAB PO (09:00)
[2018-04-04] MEDS: SUCRALFATE 1 GM TAB PO ×4 (09:31→20:55)
[2018-04-04] MEDS: INSULIN ASPART [NOVOLOG] 3 ML PEN SC ×6 (09:32→20:56)
[2018-04-04] MEDS: DIGOXIN 0.125 MG TAB PO (13:09)
[2018-04-04] MEDS ORDERED: CEPASTAT LOZENGE MT (14:00)
[2018-04-04] MEDS: IPRATROPIUM (NEB) 0.5 MG/2.5 ML AMP NEB (14:30)
[2018-04-04 15:15] LABS: CREATINE KINASE 80 IU/L (23-200)
[2018-04-04 15:28] LABS: CK INDEX 2.1; CK-MB 1.69 ng/ml (0.0-2.4)
[2018-04-04 15:31] LABS: TROPONIN-I < 0.012 ng/ml (0.00-0.12)
[2018-04-04] MEDS: GUAIFENESIN 20 MG/ML 5ML CUP PO (17:26)
[2018-04-04] MEDS: INSULIN GLARGINE [LANtus] 3 ML PEN SC (20:06)
[2018-04-04] MEDS: GABAPENTIN 300 MG CAP PO (20:55)
[2018-04-04] MEDS: ATORVASTATIN 10 MG TAB PO (20:55)
[2018-04-04] MEDS: POTASSIUM CHLORIDE (SR) 10 MEQ TAB PO (20:56)
[2018-04-04] MEDS ORDERED: POTASSIUM CHLORIDE (SR) 10 MEQ TAB PO (21:00)
[2018-04-05] MEDS: ACCU-CHEK XX (02:00)
[2018-04-05] MEDS: FUROSEMIDE 40 MG TAB PO ×2 (06:23→17:20)
[2018-04-05] MEDS: PANTOPRAZOLE (EC) 40 MG TAB PO (06:23)
[2018-04-05] MEDS: SUCRALFATE 1 GM TAB PO ×4 (07:54→21:24)
[2018-04-05] MEDS: INSULIN ASPART [NOVOLOG] 3 ML PEN SC ×7 (07:56→21:00)
[2018-04-05 08:34] LABS: ADD MAN DIFF? NO
[2018-04-05 08:37] LABS: WHITE BLOOD COUNT 11.4 10^3/ul (4.8-10.8)
[2018-04-05 08:37] LABS: ABNORMAL IP MESSAGE 1; BASOPHILS % 0.3 % (0.0-2.0); EOSINOPHILS # 0.2 10^3/ul (0.0-0.5); EOSINOPHILS % 1.5 % (0.0-7.0); HEMATOCRIT 33.7 % (37.0-47.0); HEMOGLOBIN 10.2 g/dl (12.0-16.0); LYMPHOCYTES % 8.5 % (15.0-51.0); MEAN CORPUSCULAR HEMOGLOBIN 20.3 pg (29.0-33.0); MEAN CORPUSCULAR HGB CONC 30.3 g/dl (32.0-37.0); MEAN CORPUSCULAR VOLUME 67.1 fl (82.0-101.0); MEAN PLATELET VOLUME 10.6 fl (7.4-10.4); MONOCYTE # 0.7 10^3/ul (0.3-0.9); MONOCYTES % 5.7 % (0.0-11.0); NEUTROPHIL # 9.5 10^3/ul (1.6-7.5); NEUTROPHILS % 83.6 % (39.0-77.0); PLATELET COUNT 258 10^3/UL (140-415); RED BLOOD COUNT 5.02 10^6/ul (4.20-5.40); RED CELL DISTRIBUTION WIDTH 17.1 % (11.5-14.5)
[2018-04-05 08:42] LABS: POSITIVE DIFF @See below
[2018-04-05] MEDS: MULTIVITAMINS THERAPEUTIC TAB PO (08:44)
[2018-04-05] MEDS: CALCIUM CARBONATE 1.25 GM TAB PO ×2 (08:44→21:24)
[2018-04-05] MEDS: POTASSIUM CHLORIDE (SR) 10 MEQ TAB PO ×2 (08:44→21:24)
[2018-04-05] MEDS: FERROUS SULFATE (EC) 325 MG TAB PO ×2 (08:44→21:24)
[2018-04-05] MEDS: DOCUSATE SODIUM 250 MG CAP PO ×2 (08:44→21:00)
[2018-04-05] MEDS: APIXABAN 5 MG TABLET PO ×2 (08:44→21:24)
[2018-04-05] MEDS: LISINOPRIL 20 MG TAB PO (08:45)
[2018-04-05 08:58] LABS: ALANINE AMINOTRANSFERASE 24 IU/L (13-69); ALBUMIN 3.6 g/dl (3.3-4.9); ALBUMIN/GLOBULIN RATIO 0.97; ALKALINE PHOSPHATASE 182 IU/L (42-121); ANION GAP 15 (8-16); ASPARTATE AMINO TRANSFERASE 20 IU/L (15-46); BILIRUBIN,INDIRECT 0.7 mg/dl (0-1.1); BILIRUBIN,TOTAL 0.7 mg/dl (0.2-1.3); BLOOD UREA NITROGEN 23 mg/dl (7-20); CALCIUM 8.5 mg/dl (8.4-10.2); CARBON DIOXIDE 28 mmol/L (21-31); CHLORIDE 94 mmol/L (97-110); GLUCOSE 102 mg/dl (70-220); MAGNESIUM 1.4 mg/dl (1.7-2.5); POTASSIUM 4.5 mmol/L (3.5-5.1); SODIUM 132 mmol/L (135-144); TOTAL PROTEIN 7.3 g/dl (6.1-8.1)
[2018-04-05] MEDS: GUAIFENESIN 20 MG/ML 5ML CUP PO ×3 (09:00→21:29)
[2018-04-05] MEDS: DIGOXIN 0.125 MG TAB PO (12:49)
[2018-04-05] MEDS: MAGNESIUM SULFATE 2 GM/50 ML 50 ML IVPB (16:12)
[2018-04-05] MEDS: DOXYCYCLINE 100 MG in SOD CHLORIDE 0.9% 250 ML IVPB ×2 (16:56→21:24)
[2018-04-05] MEDS ORDERED: DILTIAZEM 25 MG INJ IV (18:00)
[2018-04-05] MEDS: ATORVASTATIN 10 MG TAB PO (21:24)
[2018-04-05] MEDS: INSULIN GLARGINE [LANtus] 3 ML PEN SC (21:24)
[2018-04-05] MEDS: GABAPENTIN 300 MG CAP PO (21:24)
[2018-04-05] MEDS: morphine 2 MG INJ IV (21:31)
[2018-04-06] MEDS: ACCU-CHEK XX (02:00)
[2018-04-06] MEDS: PANTOPRAZOLE (EC) 40 MG TAB PO (05:08)
[2018-04-06] MEDS: FUROSEMIDE 40 MG TAB PO (05:08)
[2018-04-06] MEDS: INSULIN ASPART [NOVOLOG] 3 ML PEN SC ×7 (07:43→21:00)
[2018-04-06] MEDS: SUCRALFATE 1 GM TAB PO ×4 (08:00→21:06)
[2018-04-06 08:18] LABS: ADD MAN DIFF? NO
[2018-04-06 08:24] LABS: ABNORMAL IP MESSAGE 1; BASOPHILS % 0.2 % (0.0-2.0); EOSINOPHILS # 0.1 10^3/ul (0.0-0.5); EOSINOPHILS % 1.6 % (0.0-7.0); HEMATOCRIT 31.8 % (37.0-47.0); HEMOGLOBIN 9.6 g/dl (12.0-16.0); LYMPHOCYTES # 1.1 10^3/ul (0.8-2.9); MEAN CORPUSCULAR HGB CONC 30.2 g/dl (32.0-37.0); MEAN CORPUSCULAR VOLUME 66.3 fl (82.0-101.0); MEAN PLATELET VOLUME 11.3 fl (7.4-10.4); MONOCYTE # 0.8 10^3/ul (0.3-0.9); MONOCYTES % 9.4 % (0.0-11.0); NEUTROPHIL # 6.6 10^3/ul (1.6-7.5); NEUTROPHILS % 75.5 % (39.0-77.0); PLATELET COUNT 275 10^3/UL (140-415)
[2018-04-06 08:24] LABS: WHITE BLOOD COUNT 8.7 10^3/ul (4.8-10.8)
[2018-04-06 08:30] LABS: POSITIVE DIFF @See below
[2018-04-06] MEDS: DOXYCYCLINE 100 MG in SOD CHLORIDE 0.9% 250 ML IVPB ×2 (08:30→21:12)
[2018-04-06] MEDS: FUROSEMIDE 20 MG INJ IV (08:32)
[2018-04-06] MEDS: POTASSIUM CHLORIDE (SR) 10 MEQ TAB PO ×2 (08:32→21:06)
[2018-04-06] MEDS: CALCIUM CARBONATE 1.25 GM TAB PO ×2 (08:32→21:06)
[2018-04-06] MEDS: DOCUSATE SODIUM 250 MG CAP PO ×2 (08:32→21:00)
[2018-04-06] MEDS: FERROUS SULFATE (EC) 325 MG TAB PO ×2 (08:33→21:06)
[2018-04-06] MEDS: APIXABAN 5 MG TABLET PO ×2 (08:33→21:06)
[2018-04-06] MEDS: LISINOPRIL 20 MG TAB PO (08:33)
[2018-04-06] MEDS: MULTIVITAMINS THERAPEUTIC TAB PO (08:33)
[2018-04-06 08:59] LABS: MAGNESIUM 1.5 mg/dl (1.7-2.5)
[2018-04-06 08:59] LABS: PHOSPHORUS 4.5 mg/dl (2.5-4.9)
[2018-04-06 09:17] LABS: ANION GAP 11 (8-16); BLOOD UREA NITROGEN 23 mg/dl (7-20); CALCIUM 8.4 mg/dl (8.4-10.2); CARBON DIOXIDE 31 mmol/L (21-31); CHLORIDE 94 mmol/L (97-110); CREATININE 0.66 mg/dl (0.44-1.00); GLUCOSE 131 mg/dl (70-220); POTASSIUM 3.8 mmol/L (3.5-5.1); SODIUM 132 mmol/L (135-144)
[2018-04-06] MEDS: DIGOXIN 0.125 MG TAB PO (12:17)
[2018-04-06] MEDS: MAGNESIUM SULFATE 2 GM/50 ML 50 ML IVPB (15:36)
[2018-04-06] MEDS: ATORVASTATIN 10 MG TAB PO (21:06)
[2018-04-06] MEDS: GABAPENTIN 300 MG CAP PO (21:06)
[2018-04-06] MEDS: INSULIN GLARGINE [LANtus] 3 ML PEN SC (21:09)
[2018-04-06] MEDS: morphine 2 MG INJ IV (21:12)
[2018-04-07] MEDS: ACCU-CHEK XX (02:00)
[2018-04-07] MEDS: PANTOPRAZOLE (EC) 40 MG TAB PO (06:31)
[2018-04-07] MEDS: SUCRALFATE 1 GM TAB PO ×2 (06:31→11:50)
[2018-04-07 07:27] LABS: ADD MAN DIFF? NO
[2018-04-07 07:29] LABS: BASOPHILS % 0.5 % (0.0-2.0); EOSINOPHILS # 0.2 10^3/ul (0.0-0.5); EOSINOPHILS % 2.1 % (0.0-7.0); HEMATOCRIT 33.9 % (37.0-47.0); HEMOGLOBIN 10.3 g/dl (12.0-16.0); LYMPHOCYTES # 1.3 10^3/ul (0.8-2.9); LYMPHOCYTES % 15.8 % (15.0-51.0); MEAN CORPUSCULAR HEMOGLOBIN 20.3 pg (29.0-33.0); MEAN CORPUSCULAR HGB CONC 30.4 g/dl (32.0-37.0); MEAN CORPUSCULAR VOLUME 66.7 fl (82.0-101.0); MONOCYTE # 0.9 10^3/ul (0.3-0.9); MONOCYTES % 10.7 % (0.0-11.0); NEUTROPHIL # 5.9 10^3/ul (1.6-7.5); NEUTROPHILS % 70.5 % (39.0-77.0); PLATELET COUNT 306 10^3/UL (140-415); RED BLOOD COUNT 5.08 10^6/ul (4.20-5.40); RED CELL DISTRIBUTION WIDTH 17.1 % (11.5-14.5)
[2018-04-07 07:29] LABS: WHITE BLOOD COUNT 8.4 10^3/ul (4.8-10.8)
[2018-04-07] MEDS: INSULIN ASPART [NOVOLOG] 3 ML PEN SC ×4 (07:55→11:54)
[2018-04-07 07:57] LABS: ANION GAP 15 (8-16); BLOOD UREA NITROGEN 23 mg/dl (7-20); CALCIUM 8.1 mg/dl (8.4-10.2); CARBON DIOXIDE 30 mmol/L (21-31); CHLORIDE 96 mmol/L (97-110); GLUCOSE 136 mg/dl (70-220); POTASSIUM 4.1 mmol/L (3.5-5.1); SODIUM 137 mmol/L (135-144)
[2018-04-07] MEDS: DOXYCYCLINE 100 MG in SOD CHLORIDE 0.9% 250 ML IVPB (08:49)
[2018-04-07] MEDS: FERROUS SULFATE (EC) 325 MG TAB PO (08:49)
[2018-04-07] MEDS: MULTIVITAMINS THERAPEUTIC TAB PO (08:49)
[2018-04-07] MEDS: POTASSIUM CHLORIDE (SR) 10 MEQ TAB PO (08:49)
[2018-04-07] MEDS: DOCUSATE SODIUM 250 MG CAP PO (08:49)
[2018-04-07] MEDS: FUROSEMIDE 20 MG INJ IV (08:50)
[2018-04-07] MEDS: CALCIUM CARBONATE 1.25 GM TAB PO (08:50)
[2018-04-07] MEDS: LISINOPRIL 20 MG TAB PO (08:50)
[2018-04-07] MEDS: APIXABAN 5 MG TABLET PO (08:50)
[2018-04-07] MEDS: DIGOXIN 0.125 MG TAB PO (13:15)
[2018-04-07] MEDS: DIGOXIN 500 MCG INJ IV (15:26)
== END 2018-04-07 16:50 | disposition home or self-care (01) | DRG 308 ==
LOC: E/R 21:44 → MS4 04-04 12:42 → MS3 04-04 01:54 → MS4 04-04 20:40
DX: I48.91 Unspecified atrial fibrillation (principal); I50.23 Acute on chronic systolic (congestive) heart failure; E87.1 Hypo-osmolality and hyponatremia; I16.0 Hypertensive urgency; E11.51 Type 2 diabetes mellitus with diabetic peripheral angiopathy without gangrene; I11.0 Hypertensive heart disease with heart failure; E78.5 Hyperlipidemia, unspecified; E11.65 Type 2 diabetes mellitus with hyperglycemia; J06.9 Acute upper respiratory infection, unspecified; D64.9 Anemia, unspecified; Z79.4 Long term (current) use of insulin
CPT/HCPCS: 36415; 71045; 80048; 80053; 82550; 82553; 82962; 83735; 83880; 84100; 84484; 85025; 87045; 87075; 87081; 87177; 93005; 94664; 96372; 96374; 96375; 96376; 97161; 99291-25

== ENCOUNTER 2018-04-25 17:39 | Inpatient (IN) | payer MEDICARE ==
[2018-04-25 20:13] LABS: ADD MAN DIFF? NO
[2018-04-25 20:20] LABS: WHITE BLOOD COUNT 8.1 10^3/ul (4.8-10.8)
[2018-04-25 20:20] LABS: ABNORMAL IP MESSAGE 1; BASOPHIL # 0.1 10^3/ul (0.0-0.1); BASOPHILS % 0.7 % (0.0-2.0); EOSINOPHILS # 0.1 10^3/ul (0.0-0.5); EOSINOPHILS % 1.4 % (0.0-7.0); HEMOGLOBIN 11.1 g/dl (12.0-16.0); LYMPHOCYTES # 1.6 10^3/ul (0.8-2.9); LYMPHOCYTES % 19.9 % (15.0-51.0); MEAN CORPUSCULAR HEMOGLOBIN 20.7 pg (29.0-33.0); MEAN CORPUSCULAR HGB CONC 30.8 g/dl (32.0-37.0); MEAN CORPUSCULAR VOLUME 67.3 fl (82.0-101.0); MEAN PLATELET VOLUME 11.3 fl (7.4-10.4); MONOCYTE # 0.7 10^3/ul (0.3-0.9); MONOCYTES % 8.3 % (0.0-11.0); NEUTROPHIL # 5.6 10^3/ul (1.6-7.5); NEUTROPHILS % 69.3 % (39.0-77.0); NUCLEATED RED BLOOD CELLS% 0.4 /100WBC (0.0-0.0); PLATELET COUNT 270 10^3/UL (140-415); RED BLOOD COUNT 5.35 10^6/ul (4.20-5.40); RED CELL DISTRIBUTION WIDTH 19.3 % (11.5-14.5)
[2018-04-25] MEDS: DILTIAZEM 50 MG INJ IV (20:22)
[2018-04-25 20:23] LABS: POSITIVE DIFF @See below
[2018-04-25] MEDS ORDERED: DILTIAZEM-D5W 125MG/125ML DRIP 125 ML IV ×2 (20:30→21:00)
[2018-04-25 20:37] LABS: INR 1.18; PROTIME 15.2 Sec (11.9-14.9); PT RATIO 1.2
[2018-04-25 20:43] LABS: ALANINE AMINOTRANSFERASE 17 IU/L (13-69); ALBUMIN 3.8 g/dl (3.3-4.9); ALBUMIN/GLOBULIN RATIO 0.95; ALKALINE PHOSPHATASE 181 IU/L (42-121); ANION GAP 15 (8-16); ASPARTATE AMINO TRANSFERASE 22 IU/L (15-46); BILIRUBIN,INDIRECT 0.7 mg/dl (0-1.1); BILIRUBIN,TOTAL 0.7 mg/dl (0.2-1.3); BLOOD UREA NITROGEN 11 mg/dl (7-20); CALCIUM 8.9 mg/dl (8.4-10.2); CARBON DIOXIDE 30 mmol/L (21-31); CHLORIDE 97 mmol/L (97-110); CREATININE 0.56 mg/dl (0.44-1.00); GLUCOSE 166 mg/dl (70-220); POTASSIUM 3.8 mmol/L (3.5-5.1); SODIUM 138 mmol/L (135-144); TOTAL PROTEIN 7.8 g/dl (6.1-8.1)
[2018-04-25 20:53] LABS: B-TYPE NATRIURETIC PEPTIDE 2280 PG/ML (0-125)
[2018-04-25 20:54] LABS: TROPONIN-I < 0.012 ng/ml (0.000-0.120)
[2018-04-25] MEDS ORDERED: ACETAMINOPHEN 325 MG TAB PO (22:30)
[2018-04-25] MEDS ORDERED: ONDANSETRON 4 MG INJ IV (22:30)
[2018-04-25] MEDS ORDERED: NACL 0.9% 3 ML SYG IV (23:00)
[2018-04-25] MEDS ORDERED: BISACODYL (EC) 5 MG TAB PO (23:00)
[2018-04-25] MEDS ORDERED: DOCUSATE SODIUM 100 MG CAP PO (23:00)
[2018-04-26] MEDS: APIXABAN 5 MG TABLET PO ×3 (02:33→20:06)
[2018-04-26] MEDS: ACETAMINOPHEN 325 MG TAB PO ×3 (02:39→22:34)
[2018-04-26] MEDS: GUAIFENESIN/DM 5ML CUP PO ×2 (03:16→17:02)
[2018-04-26] MEDS ORDERED: GLUCOSE GEL 15 GRAM TUBE BUCCAL (05:30)
[2018-04-26] MEDS ORDERED: GLUCOSE GEL 15 GRAM TUBE PO ×2 (05:30)
[2018-04-26] MEDS ORDERED: GLUCAGON 1 MG INJ IM (05:30)
[2018-04-26] MEDS ORDERED: DEXTROSE 50% 50 ML SYRINGE IV ×2 (05:30)
[2018-04-26] MEDS: FUROSEMIDE 40 MG TAB PO (06:01)
[2018-04-26] MEDS: INSULIN ASPART [NOVOLOG] 3 ML PEN SC ×4 (07:55→20:08)
[2018-04-26] MEDS: INSULIN GLARGINE [LANtus] 3 ML PEN SC (08:47)
[2018-04-26] MEDS: FERROUS SULFATE (EC) 325 MG TAB PO (10:26)
[2018-04-26] MEDS: DIGOXIN 0.25 MG TAB PO (12:53)
[2018-04-26] MEDS: SUCRALFATE 1 GM TAB PO ×3 (12:53→20:06)
[2018-04-26] MEDS: CEFTRIAXONE 1 GM/50 ML (PMX) 50 ML IVPB (16:57)
[2018-04-26] MEDS: AZITHROMYCIN 250 MG TAB PO (16:59)
[2018-04-26] MEDS: FUROSEMIDE 40 MG INJ IV (17:17)
[2018-04-26 19:05] LABS: TROPONIN-I < 0.012 ng/ml (0.000-0.120)
[2018-04-26] MEDS: METOPROLOL 25 MG TAB PO (20:05)
[2018-04-26] MEDS: ATORVASTATIN 10 MG TAB PO (20:06)
[2018-04-27 01:30] LABS: TROPONIN-I 0.048 ng/ml (0.000-0.120)
[2018-04-27] MEDS: SUCRALFATE 1 GM TAB PO ×4 (06:30→20:43)
[2018-04-27] MEDS: FUROSEMIDE 40 MG INJ IV ×2 (06:31→17:28)
[2018-04-27 06:52] LABS: ADD MAN DIFF? NO
[2018-04-27 06:54] LABS: WHITE BLOOD COUNT 7.8 10^3/ul (4.8-10.8)
[2018-04-27 06:54] LABS: ABNORMAL IP MESSAGE 1; BASOPHILS % 0.5 % (0.0-2.0); EOSINOPHILS # 0.3 10^3/ul (0.0-0.5); EOSINOPHILS % 3.2 % (0.0-7.0); LYMPHOCYTES # 1.4 10^3/ul (0.8-2.9); LYMPHOCYTES % 17.3 % (15.0-51.0); MEAN CORPUSCULAR HEMOGLOBIN 20.4 pg (29.0-33.0); MEAN CORPUSCULAR HGB CONC 30.3 g/dl (32.0-37.0); MEAN CORPUSCULAR VOLUME 67.3 fl (82.0-101.0); MEAN PLATELET VOLUME 11.1 fl (7.4-10.4); MONOCYTE # 0.6 10^3/ul (0.3-0.9); MONOCYTES % 7.2 % (0.0-11.0); NEUTROPHIL # 5.6 10^3/ul (1.6-7.5); NEUTROPHILS % 71.5 % (39.0-77.0); PLATELET COUNT 240 10^3/UL (140-415); RED CELL DISTRIBUTION WIDTH 18.5 % (11.5-14.5)
[2018-04-27 06:56] LABS: POSITIVE DIFF @See below
[2018-04-27 07:17] LABS: ANION GAP 14 (8-16); BLOOD UREA NITROGEN 19 mg/dl (7-20); CALCIUM 8.6 mg/dl (8.4-10.2); CARBON DIOXIDE 30 mmol/L (21-31); CHLORIDE 96 mmol/L (97-110); CHOL/HDL RATIO 2.5 RATIO; CREATININE 0.75 mg/dl (0.44-1.00); GLUCOSE 152 mg/dl (70-220); HDL CHOLESTEROL 33 mg/dl (35-98); LDL CHOLESTEROL,CALCULATED 29 mg/dl; POTASSIUM 3.5 mmol/L (3.5-5.1); SODIUM 136 mmol/L (135-144); TRIGLYCERIDES 113 mg/dl (0-149)
[2018-04-27 07:17] LABS: CHOLESTEROL 85 mg/dl (100-200)
[2018-04-27 07:29] LABS: TROPONIN-I 0.057 ng/ml (0.000-0.120)
[2018-04-27 07:34] LABS: FREE T3 2.87 pg/ml (2.77-5.27)
[2018-04-27] MEDS: INSULIN GLARGINE [LANtus] 3 ML PEN SC (08:11)
[2018-04-27] MEDS: INSULIN ASPART [NOVOLOG] 3 ML PEN SC ×4 (08:12→20:33)
[2018-04-27] MEDS: APIXABAN 5 MG TABLET PO ×2 (08:41→20:43)
[2018-04-27] MEDS: AZITHROMYCIN 250 MG TAB PO (08:41)
[2018-04-27] MEDS: FERROUS SULFATE (EC) 325 MG TAB PO (08:41)
[2018-04-27] MEDS: METOPROLOL 25 MG TAB PO (08:41)
[2018-04-27] MEDS: GUAIFENESIN/DM 5ML CUP PO (09:46)
[2018-04-27] MEDS: ACETAMINOPHEN 325 MG TAB PO (11:00)
[2018-04-27] MEDS: DIGOXIN 0.25 MG TAB PO (12:29)
[2018-04-27] MEDS: METOPROLOL (XL) 25 MG TAB PO (12:32)
[2018-04-27] MEDS: CEFTRIAXONE 1 GM/50 ML (PMX) 50 ML IVPB (17:14)
[2018-04-27] MEDS: ATORVASTATIN 10 MG TAB PO (20:43)
[2018-04-27] MEDS: GUAIFENESIN 20 MG/ML 5ML CUP PO (20:44)
[2018-04-28] MEDS: FUROSEMIDE 40 MG INJ IV (05:15)
[2018-04-28 07:59] LABS: ANION GAP 17 (8-16); BLOOD UREA NITROGEN 24 mg/dl (7-20); CALCIUM 9.1 mg/dl (8.4-10.2); CARBON DIOXIDE 34 mmol/L (21-31); CHLORIDE 98 mmol/L (97-110); CREATININE 0.77 mg/dl (0.44-1.00); GLUCOSE 146 mg/dl (70-220); POTASSIUM 3.4 mmol/L (3.5-5.1); SODIUM 146 mmol/L (135-144)
[2018-04-28] MEDS: SUCRALFATE 1 GM TAB PO ×4 (08:22→21:07)
[2018-04-28] MEDS: APIXABAN 5 MG TABLET PO ×2 (08:22→21:08)
[2018-04-28] MEDS: METOPROLOL (XL) 25 MG TAB PO (08:22)
[2018-04-28] MEDS: AZITHROMYCIN 250 MG TAB PO ×2 (08:23→13:00)
[2018-04-28] MEDS: FERROUS SULFATE (EC) 325 MG TAB PO (08:23)
[2018-04-28] MEDS: INSULIN ASPART [NOVOLOG] 3 ML PEN SC ×4 (08:36→21:15)
[2018-04-28] MEDS: INSULIN GLARGINE [LANtus] 3 ML PEN SC (08:37)
[2018-04-28] MEDS: ACETAMINOPHEN 325 MG TAB PO (12:15)
[2018-04-28] MEDS: POTASSIUM CHLORIDE (SR) 20 MEQ TAB PO (14:01)
[2018-04-28] MEDS: DIGOXIN 0.25 MG TAB PO (14:04)
[2018-04-28] MEDS: LISINOPRIL 10 MG TAB PO (14:04)
[2018-04-28] MEDS: ATORVASTATIN 10 MG TAB PO (21:07)
[2018-04-28] MEDS: GUAIFENESIN 20 MG/ML 5ML CUP PO (21:08)
[2018-04-29] MEDS: SUCRALFATE 1 GM TAB PO ×4 (06:27→21:11)
[2018-04-29] MEDS: INSULIN ASPART [NOVOLOG] 3 ML PEN SC ×4 (07:55→21:18)
[2018-04-29] MEDS: APIXABAN 5 MG TABLET PO ×2 (08:08→21:12)
[2018-04-29] MEDS: LISINOPRIL 10 MG TAB PO (08:08)
[2018-04-29] MEDS: AZITHROMYCIN 250 MG TAB PO (08:08)
[2018-04-29] MEDS: FERROUS SULFATE (EC) 325 MG TAB PO (08:09)
[2018-04-29] MEDS: INSULIN GLARGINE [LANtus] 3 ML PEN SC (08:11)
[2018-04-29] MEDS: GUAIFENESIN 20 MG/ML 5ML CUP PO (08:17)
[2018-04-29] MEDS: FUROSEMIDE 40 MG INJ IV (08:17)
[2018-04-29] MEDS: METOPROLOL (XL) 25 MG TAB PO (08:18)
[2018-04-29] MEDS: ACETAMINOPHEN 325 MG TAB PO ×2 (08:18→21:20)
[2018-04-29 09:32] LABS: ANION GAP 12 (8-16); BLOOD UREA NITROGEN 25 mg/dl (7-20); CALCIUM 9.1 mg/dl (8.4-10.2); CARBON DIOXIDE 34 mmol/L (21-31); CHLORIDE 100 mmol/L (97-110); CREATININE 0.64 mg/dl (0.44-1.00); GLUCOSE 123 mg/dl (70-220); POTASSIUM 3.8 mmol/L (3.5-5.1); SODIUM 142 mmol/L (135-144)
[2018-04-29] MEDS: IOHEXOL 14.3 MG(I)/ML (ADULT) BTL PO (12:23)
[2018-04-29] MEDS: DIGOXIN 0.25 MG TAB PO (12:25)
[2018-04-29] MEDS: SOD FERRIC GLUC COMPLX 125 MG in SOD CHLORIDE 0.9% 100 ML IVPB (12:25)
[2018-04-29 12:40] LABS: IRON 72 ug/dl (35-150)
[2018-04-29 12:50] LABS: % IRON SATURATION 17 % SAT (22-52); TOTAL IRON BINDING CAPACITY 413 ug/dl (241-421)
[2018-04-29 13:15] LABS: FERRITIN 19.3 ng/ml (11.1-264.0)
[2018-04-29] MEDS: SOD CHLORIDE 0.9% 100 ML (18:34)
[2018-04-29] MEDS: IODIXANOL LOCM 100 ML BTL (18:34)
[2018-04-29] MEDS: ATORVASTATIN 10 MG TAB PO (21:11)
[2018-04-29] MEDS: METOPROLOL (XL) 50 MG TAB PO (21:12)
[2018-04-29] MEDS: LISINOPRIL 20 MG TAB PO (21:13)
[2018-04-30] MEDS: GUAIFENESIN/DM 5ML CUP PO (03:19)
[2018-04-30] MEDS: hydrALAzine 20 MG INJ IV (04:38)
[2018-04-30] MEDS: SUCRALFATE 1 GM TAB PO ×4 (04:46→20:24)
[2018-04-30] MEDS: AZITHROMYCIN 250 MG TAB PO (07:59)
[2018-04-30] MEDS: APIXABAN 5 MG TABLET PO ×2 (07:59→20:24)
[2018-04-30] MEDS: FERROUS SULFATE (EC) 325 MG TAB PO (08:00)
[2018-04-30] MEDS: FUROSEMIDE 40 MG INJ IV ×2 (08:00→08:44)
[2018-04-30] MEDS: METOPROLOL (XL) 50 MG TAB PO ×2 (08:00→20:24)
[2018-04-30] MEDS: INSULIN ASPART [NOVOLOG] 3 ML PEN SC ×4 (08:19→20:25)
[2018-04-30] MEDS: INSULIN GLARGINE [LANtus] 3 ML PEN SC (08:20)
[2018-04-30] MEDS: FUROSEMIDE 40 MG TAB PO ×2 (08:44→17:03)
[2018-04-30] MEDS: MAGNESIUM HYDROXIDE 30ML CUP PO (08:44)
[2018-04-30] MEDS: DIGOXIN 0.25 MG TAB PO (11:47)
[2018-04-30] MEDS: ACETAMINOPHEN 325 MG TAB PO (13:37)
[2018-04-30] MEDS: SOD FERRIC GLUC COMPLX 125 MG in SOD CHLORIDE 0.9% 100 ML IVPB (17:03)
[2018-04-30] MEDS: ATORVASTATIN 10 MG TAB PO (20:24)
[2018-04-30] MEDS: LISINOPRIL 20 MG TAB PO (20:25)
[2018-05-01] MEDS: hydrALAzine 20 MG INJ IV (03:04)
[2018-05-01] MEDS: SUCRALFATE 1 GM TAB PO ×2 (05:25→10:09)
[2018-05-01] MEDS: FUROSEMIDE 40 MG TAB PO (05:28)
[2018-05-01] MEDS: ACETAMINOPHEN 325 MG TAB PO ×2 (05:32→15:08)
[2018-05-01 06:40] LABS: ADD MAN DIFF? NO
[2018-05-01 06:43] LABS: ABNORMAL IP MESSAGE 1; BASOPHIL # 0.1 10^3/ul (0.0-0.1); BASOPHILS % 0.7 % (0.0-2.0); EOSINOPHILS # 0.2 10^3/ul (0.0-0.5); EOSINOPHILS % 3.2 % (0.0-7.0); HEMATOCRIT 30.7 % (37.0-47.0); HEMOGLOBIN 9.6 g/dl (12.0-16.0); LYMPHOCYTES # 1.3 10^3/ul (0.8-2.9); LYMPHOCYTES % 17.7 % (15.0-51.0); MEAN CORPUSCULAR HGB CONC 31.3 g/dl (32.0-37.0); MEAN PLATELET VOLUME 11.2 fl (7.4-10.4); MONOCYTE # 0.6 10^3/ul (0.3-0.9); MONOCYTES % 8.6 % (0.0-11.0); NEUTROPHILS % 69.5 % (39.0-77.0); PLATELET COUNT 271 10^3/UL (140-415); RED BLOOD COUNT 4.58 10^6/ul (4.20-5.40); RED CELL DISTRIBUTION WIDTH 18.9 % (11.5-14.5)
[2018-05-01 06:43] LABS: WHITE BLOOD COUNT 7.2 10^3/ul (4.8-10.8)
[2018-05-01 06:50] LABS: POSITIVE DIFF @See below
[2018-05-01 07:02] LABS: MAGNESIUM 1.9 mg/dl (1.7-2.5)
[2018-05-01 07:19] LABS: ALANINE AMINOTRANSFERASE 16 IU/L (13-69); ALBUMIN 3.2 g/dl (3.3-4.9); ALBUMIN/GLOBULIN RATIO 0.91; ALKALINE PHOSPHATASE 173 IU/L (42-121); ANION GAP 15 (8-16); ASPARTATE AMINO TRANSFERASE 26 IU/L (15-46); BILIRUBIN,INDIRECT 0.8 mg/dl (0-1.1); BILIRUBIN,TOTAL 0.8 mg/dl (0.2-1.3); BLOOD UREA NITROGEN 26 mg/dl (7-20); CALCIUM 8.8 mg/dl (8.4-10.2); CARBON DIOXIDE 33 mmol/L (21-31); CHLORIDE 99 mmol/L (97-110); CREATININE 0.59 mg/dl (0.44-1.00); GLUCOSE 115 mg/dl (70-220); POTASSIUM 3.5 mmol/L (3.5-5.1); SODIUM 143 mmol/L (135-144); TOTAL PROTEIN 6.7 g/dl (6.1-8.1)
[2018-05-01] MEDS: INSULIN ASPART [NOVOLOG] 3 ML PEN SC ×2 (07:55→12:23)
[2018-05-01] MEDS: METOPROLOL (XL) 50 MG TAB PO (10:09)
[2018-05-01] MEDS: APIXABAN 5 MG TABLET PO (10:09)
[2018-05-01] MEDS: FERROUS SULFATE (EC) 325 MG TAB PO (10:09)
[2018-05-01] MEDS: INSULIN GLARGINE [LANtus] 3 ML PEN SC (10:17)
[2018-05-01] MEDS: DIGOXIN 0.25 MG TAB PO (12:19)
== END 2018-05-01 16:30 | disposition home or self-care (01) | DRG 291 ==
LOC: TEL 22:14 → E/R 17:39 → TEL 04-27 21:46
DX: I11.0 Hypertensive heart disease with heart failure (principal); J18.9 Pneumonia, unspecified organism; I50.43 Acute on chronic combined systolic (congestive) and diastolic (congestive) heart failure; D50.9 Iron deficiency anemia, unspecified; E78.5 Hyperlipidemia, unspecified; I27.20 Pulmonary hypertension, unspecified; E66.9 Obesity, unspecified; I48.2 Chronic atrial fibrillation; E27.9 Disorder of adrenal gland, unspecified; E11.51 Type 2 diabetes mellitus with diabetic peripheral angiopathy without gangrene; Z79.01 Long term (current) use of anticoagulants; Z79.4 Long term (current) use of insulin
CPT/HCPCS: 36415; 71045; 74177; 80048; 80053; 80061; 82728; 82962; 83540; 83735; 83880; 84439; 84443; 84481; 84484; 85025; 85610; 85730; 87081; 93005; 96374; 99285-25; G0378